=== PATIENT | male | born 1995 | race Caucasian/White ===

== ENCOUNTER 2018-08-16 18:53 | Emergency (ER) | payer MEDICAID ==
[~2018-08-16] VITALS: Ht 180.3 cm; Wt 86.4 kg
[2018-08-16 19:54] VITALS: BP 139/79
[2018-08-16] MEDS ORDERED: IBUPROFEN 800 MG TABLET PO ONE (20:00)
== END 2018-08-16 20:32 | disposition home or self-care (01) ==
LOC: EMS 18:54
DX: L03.011 Cellulitis of right finger (principal); F17.210 Nicotine dependence, cigarettes, uncomplicated